=== PATIENT | male | born 1970 | race Caucasian/White ===

== ENCOUNTER 2018-09-04 17:17 | Emergency (ER) | payer SELFPAY ==
[~2018-09-04] VITALS: Ht 182.9 cm; Wt 144.9 kg
[2018-09-04 17:24] VITALS: Ht 182.9 cm; Wt 144.9 kg
[2018-09-04 19:05] VITALS: BP 146/98
== END 2018-09-04 19:05 | disposition home or self-care (01) ==
LOC: ED 17:17
DX: S39.012A Strain of muscle, fascia and tendon of lower back, initial encounter (principal); X58.XXXA Exposure to other specified factors, initial encounter; Y93.89 Activity, other specified; Y92.89 Other specified places as the place of occurrence of the external cause; Y99.8 Other external cause status; E66.9 Obesity, unspecified; R73.03 Prediabetes
CPT/HCPCS: 82962